=== PATIENT | female | born 1980 ===

== ENCOUNTER 2018-05-18 19:19 | Emergency (ER) | payer BC, SELFPAY ==
--- NOTE | 2018-05-18 19:22 | W.ED.GENAD ---
Discharge Plan Disposition Patient Disposition: HOME Condition: Stable Discharge Details Chief Complaint: Abd Prob Clinical Impression: Abdominal pain, Flank pain Primary Care Provider: None,None ED Provider: Feliciano Young Home Meds and New Rx's Prescriptions: No Action No Known Home Meds RF: 0 Discharge Instructions Instructions: Abdominal Pain (ED) Additional Instructions: Your cat scan did not show any acute findings to explain your symptoms You have gallstones that are unlikely causing your symptoms. If you develop pain after eating this could signal the stones are causing your pain and you should follow up with your primary care or return to the emergency department if the pain is severe Your cat scan also showed a possible uterine leiomyoma. When you follow up with your primary care provider in 1-2 weeks discuss having an ultrasound done to further evaluate this If you have significant worsening of pain, persistent vomit or high fevers return to the emergency department for reevaluation Medical Decision Making 38 yo female who denies chronic medical problems comes in with left sided abdominal/flank pain since this morning. Denies fevers or vomit. She localizes it to the left oblique and lower abdomen and has mild llq pain on exam. Will obtain CT to eval for possible diverticulitis vs kidney stone. Has no chest pain or sob and pain is in lower abdomen so dobut entities such as pe/acs and no ruq pain to suggest cholecystitis. pt's labs show no significant abnormaltiies, still declining pain meds as pain is mild, awaiting imaging results CT shows findings as described under imaging results. Only has mild pain on palpation without guarding. CT shows gallstones but has absolutely no ruq pain so do not feel this is the cause of her symptoms. I advised she f/u with her pcp for further w/u of the uterine leiomyoma and gallstones if needed and return precautions given. She has no rlq pain or tenderness so doubt appendicitis. I did advise she appears constipated on the CT and she states she has had bowel movements but hasn't eaten her normal diet due to travelling (is from [place]), advised if she notes decreased bm's to start stool softener. Differential Diagnosis diverticulitis, kidney stone Imaging Data Radiologic Study: Attestation: I personally reviewed and interpreted this imaging study as follows: Imaging: CT Scan Radiologist's impression: Cholelithiasis as above. Small appendicolith within the appendix as described above. Left nephrolithiasis without evidence of obstruction. Suspect uterine leiomyoma. This can be reevaluated with pelvic ultrasound if clinically warranted. Pessary in place. Osseous findings as above. Suspect some degree of constipation. Clinical correlation is recommended. Lab Data Lab results reviewed: Yes I reviewed the patient's lab results. HPI General Mode of arrival: ambulatory. Date/Time Provider Initiated Documentation: 05/18/18 19:21. Limitations to Documentation: no limitations. Information obtained by: patient. History of Present Illness 38 year old F presents to the emergency department with the chief complaint of abdominal pain, described as moderate, with intensity rated at 4. Quality is described as aching, and is localized to the abdomen. Patient reports no radiation. Patient started experiencing this hour(s) (10) and it has been intermittent. No relieving factors improve symptom(s), No exacerbating factors reported . Patient did receive the following treatments prior to arrival, none Related Data Home Medications Medication Instructions Recorded Confirmed Unknown [No Known Home Meds] 05/18/18 05/18/18 Allergies Allergy/AdvReac Type Severity Reaction Status Date / Time No Known Allergies Allergy Unverified 05/18/18 19:36 Review of Systems Review of Systems All systems reviewed & are unremarkable except as noted in HPI and below Constitutional Denies chills, Denies fever(s) and Denies weakness Eyes Denies loss of vision ENT Denies change in voice Cardiovascular Denies chest pain and Denies dyspnea Respiratory Denies dyspnea Gastrointestinal Denies nausea and Denies vomiting Genitourinary Denies dysuria Musculoskeletal Denies joint swelling Integumentary/Breasts Denies rash Neurologic Denies loss of vision and Denies weakness Psychiatric Denies depression Endocrine Denies cold intolerance and Denies heat intolerance Allergic/Immunologic Denies urticaria [facility] Social History Smoking/Tobacco Use Status: Never Exam Const General: no acute distress Orientation: alert HENMT Head: normal to inspection Ears: external ears normal General nose exam: external nose normal Mouth: moist mucous membranes Eyes General: appearance normal, both eyes and all related structures Neck Neck: normal visual inspection Resp Effort & Inspection: normal respiratory effort and able to speak in complete sentences Cardio Rate: regular rate GI Inspection: normal to inspection Palpation: soft Skin General skin exam: no rashes or lesions noted Neuro General: alert and oriented x3 Extrem General: normal to inspection Psych Mental Status: mental status grossly normal
[2018-05-18 19:28] VITALS: BP 134/91; PULSE 84; RESP 16; TEMP 36.6; O2SAT 97
--- NOTE | 2018-05-18 19:40 | DI.CT_ITS ---
SYMPTOMS/DIAGNOSIS: LT SIDED ABD PAIN CT OF THE ABDOMEN AND PELVIS: Images were performed from the lower chest through the ischial tuberosities after IV and without oral contrast. The lung bases are clear. The visualized portions of the heart are unremarkable. Large calcified stones are noted in the gallbladder. There is abnormal gallbladder wall thickening or distention. No biliary dilatation is seen. There is mild fatty infiltration of the liver. The spleen, pancreas and adrenals are unremarkable. There is a tiny nonobstructing stone at the lower pole of the left kidney. The bladder is unremarkable. A cervical diaphragm is noted. The uterus is enlarged and shows a few fibroids. The ovaries are unremarkable. The appendix is not enlarged. No bowel dilatation or inflammatory changes are seen. There is a normal quantity of stool. Degenerative changes are seen at L 4 - 5. IMPRESSION: Cholelithiasis. No evidence of acute cholecystitis or other acute abnormality.
--- NOTE | 2018-05-18 19:43 | ED.GENADUL_ITS ---
Discharge Plan Disposition Patient Disposition: HOME Condition: Stable Discharge Details Chief Complaint: Abd Prob Clinical Impression: Abdominal pain, Flank pain Primary Care Provider: None,None ED Provider: Feliciano Young Home Meds and New Rx's Prescriptions: No Action No Known Home Meds RF: 0 Discharge Instructions Instructions: Abdominal Pain (ED) Additional Instructions: Your cat scan did not show any acute findings to explain your symptoms You have gallstones that are unlikely causing your symptoms. If you develop pain after eating this could signal the stones are causing your pain and you should follow up with your primary care or return to the emergency department if the pain is severe Your cat scan also showed a possible uterine leiomyoma. When you follow up with your primary care provider in 1-2 weeks discuss having an ultrasound done to further evaluate this If you have significant worsening of pain, persistent vomit or high fevers return to the emergency department for reevaluation Medical Decision Making 38 yo female who denies chronic medical problems comes in with left sided abdominal/flank pain since this morning. Denies fevers or vomit. She localizes it to the left oblique and lower abdomen and has mild llq pain on exam. Will obtain CT to eval for possible diverticulitis vs kidney stone. Has no chest pain or sob and pain is in lower abdomen so dobut entities such as pe/acs and no ruq pain to suggest cholecystitis. pt's labs show no significant abnormaltiies, still declining pain meds as pain is mild, awaiting imaging results CT shows findings as described under imaging results. Only has mild pain on palpation without guarding. CT shows gallstones but has absolutely no ruq pain so do not feel this is the cause of her symptoms. I advised she f/u with her pcp for further w/u of the uterine leiomyoma and gallstones if needed and return precautions given. She has no rlq pain or tenderness so doubt appendicitis. I did advise she appears constipated on the CT and she states she has had bowel movements but hasn't eaten her normal diet due to travelling (is from [place]), advised if she notes decreased bm's to start stool softener. Differential Diagnosis diverticulitis, kidney stone Imaging Data Radiologic Study: Attestation: I personally reviewed and interpreted this imaging study as follows: Imaging: CT Scan Radiologist's impression: Cholelithiasis as above. Small appendicolith within the appendix as described above. Left nephrolithiasis without evidence of obstruction. Suspect uterine leiomyoma. This can be reevaluated with pelvic ultrasound if clinically warranted. Pessary in place. Osseous findings as above. Suspect some degree of constipation. Clinical correlation is recommended. Lab Data Lab results reviewed: Yes I reviewed the patient's lab results. HPI General Mode of arrival: ambulatory . Date/Time Provider Initiated Documentation: 05/18/18 19:21 . Limitations to Documentation: no limitations . Information obtained by: patient . History of Present Illness 38 year old F presents to the emergency department with the chief complaint of abdominal pain, described as moderate, with intensity rated at 4. Quality is described as aching, and is localized to the abdomen. Patient reports no radiation. Patient started experiencing this hour(s) (10) and it has been intermittent. No relieving factors improve symptom(s), No exacerbating factors reported . Patient did receive the following treatments prior to arrival, none Related Data Home Medications Medication Instructions Recorded Confirmed Unknown [No Known Home Meds] 05/18/18 05/18/18 Allergies Allergy/AdvReac Type Severity Reaction Status Date / Time No Known Allergies Allergy Unverified 05/18/18 19:36 Review of Systems Review of Systems All systems reviewed & are unremarkable except as noted in HPI and below Constitutional Denies chills, Denies fever(s) and Denies weakness Eyes Denies loss of vision ENT Denies change in voice Cardiovascular Denies chest pain and Denies dyspnea Respiratory Denies dyspnea Gastrointestinal Denies nausea and Denies vomiting Genitourinary Denies dysuria Musculoskeletal Denies joint swelling Integumentary/Breasts Denies rash Neurologic Denies loss of vision and Denies weakness Psychiatric Denies depression Endocrine Denies cold intolerance and Denies heat intolerance Allergic/Immunologic Denies urticaria [facility] Social History Smoking/Tobacco Use Status: Never Exam Const General: no acute distress Orientation: alert HENMT Head: normal to inspection Ears: external ears normal General nose exam: external nose normal Mouth: moist mucous membranes Eyes General: appearance normal, both eyes and all related structures Neck Neck: normal visual inspection Resp Effort & Inspection: normal respiratory effort and able to speak in complete sentences Cardio Rate: regular rate GI Inspection: normal to inspection Palpation: soft Skin General skin exam: no rashes or lesions noted Neuro General: alert and oriented x3 Extrem General: normal to inspection Psych Mental Status: mental status grossly normal
[2018-05-18 20:19] LABS: Abs Immature Grans 0.05 k/cumm (0.0-0.09); Absolute Basophil Count 0.03 k/cumm (0.0-0.2); Absolute Eosinophil Count 0.08 k/cumm (0.0-0.7); Absolute Lymphocyte Count 2.55 k/cumm (1.2-3.4); Absolute Neutrophil Count 10.06 k/cumm (1.2-6.7); Basophils % 0.2; Eosinophils % 0.6; HCT 40.1 % (36.0-46.0); HGB 13.7 g/dL (12.0-15.5); Immature Grans % 0.4; Lymphocytes % 18.9; Mean Corp. HGB Concentration 34.2 g/dL (32.0-36.0); Mean Corpuscular Hemoglobin 30.6 pg (27.0-33.0); Mean Corpuscular Volume 89.5 fL (80-95); Mean Platelet Volume 11.2 fL (8.0-11.0); Monocytes % 5.3; Neutrophils % 74.6; Platelet Count 342 x1000/uL (130-400); RBC 4.48 m/cumm (4.00-5.20); RBC Distribution Width 13.7 % (11.7-14.6); White Blood Cell Count 13.49 k/cumm (4.4-10.8)
[2018-05-18] MEDS: Omnipaque 350 MG/ML 100 ML BTL IJ (20:24)
[2018-05-18 20:33] LABS: Absolute Monocyte Count 0.71 k/cumm (0.11-0.7)
[2018-05-18 20:40] LABS: ALT 26 U/L (12-78); AST 15 U/L (15-37); Albumin 3.9 g/dL (3.4-5.0); Alkaline Phosphatase 101 U/L (46-116); Bilirubin, Direct 0.06 mg/dL (0.00-0.20); Bilirubin, Total 0.2 mg/dL (0.2-1.0); Total Protein 8.4 g/dL (6.4-8.2)
[2018-05-18 20:41] LABS: ALT 25 U/L (12-78); AST 16 U/L (15-37); Albumin 3.9 g/dL (3.4-5.0); Alkaline Phosphatase 102 U/L (46-116); Anion Gap 13.8 mmol/L (3-11); BUN 11 mg/dL (7-18); Bilirubin, Total 0.2 mg/dL (0.2-1.0); CO2 23.2 mmol/L (21.0-32.0); CREATININE 1.22 mg/dL (0.55-1.02); Calcium 9.5 mg/dL (8.5-10.1); Chloride 101 mmol/L (98-107); Estimated GFR 49.07 (mL/min/1.73m2); Glucose 106 mg/dL (70-100); Lipase 164 U/L (73-393); Potassium 4.1 mmol/L (3.5-5.1); Sodium 138 mmol/L (136-145); Total Protein 8.4 g/dL (6.4-8.2)
--- NOTE | 2018-05-18 21:03 | DI.VRAD_ITS ---
EXAM: CT Abdomen and Pelvis With Contrast EXAM DATE/TIME: 05/18/2018 7:41 PM CLINICAL HISTORY: 38 years old, female; Pain; Abdominal pain; Generalized TECHNIQUE: Axial computed tomography images of the abdomen and pelvis with intravenous contrast. All CT scans at this facility use at least one of these dose optimization techniques: automated exposure control; mA and/or kV adjustment per patient size (includes targeted exams where dose is matched to clinical indication); or iterative reconstruction. Coronal and sagittal reformatted images were created and reviewed. CONTRAST: 100 ml of [id number] administered intravenously. COMPARISON: No relevant prior studies available. FINDINGS: Lower thorax: The visualized portions of the heart and pericardium are within normal limits. The visualized lung bases are within normal limits. ABDOMEN: Liver: The liver is within normal limits. Gallbladder and bile ducts: There are large calcified gallstones within the gallbladder. Pancreas: The pancreas is within normal limits. Spleen: The spleen is unremarkable. Adrenals: The adrenal glands are unremarkable. Kidneys and ureters: The right kidney is within normal limits. There is a tiny calculus in the lower pole of the left kidney measuring 3 mm. This is nonobstructing. Stomach and bowel: There is no evidence of bowel obstruction. There are feces within the colon which could represent some degree of constipation. Appendix: The appendix is visualized. There is a tiny appendicolith within the appendix measuring 3 mm. Otherwise the appendix appears within normal limits. PELVIS: Bladder: The urinary bladder is unremarkable. Reproductive: The uterus is slightly nodular. Small uterine leiomyoma are not excluded. The ovaries are unremarkable. There is a pessary in place. ABDOMEN and PELVIS: Intraperitoneal space: Normal. No free air. No significant fluid collection. Bones/joints: There are degenerative changes of the thoracic and lumbar spines. There is degenerative disc disease at L4-L5. Soft tissues: Unremarkable. Vasculature: Normal. No abdominal aortic aneurysm. Lymph nodes: No enlarged lymph nodes. IMPRESSION: Cholelithiasis as above. Small appendicolith within the appendix as described above. Left nephrolithiasis without evidence of obstruction. Suspect uterine leiomyoma. This can be reevaluated with pelvic ultrasound if clinically warranted. Pessary in place. Osseous findings as above. Suspect some degree of constipation. Clinical correlation is recommended. Dictated and Authenticated by: Pritesh Vail MD. Ordering:TRACY Wiggins MD
[2018-05-18 21:23] VITALS: BP 132/90; PULSE 80; RESP 15; TEMP 36.6; O2SAT 97
== END 2018-05-18 21:32 | disposition home or self-care (01) ==
LOC: ER 21:47
PROVIDERS: Emergency Provider Emergency Medicine
DX: R10.12 Left upper quadrant pain (principal); R10.32 Left lower quadrant pain; R93.2 Abnormal findings on diagnostic imaging of liver and biliary tract; R93.5 Abnormal findings on diagnostic imaging of other abdominal regions, including retroperitoneum
CPT/HCPCS: 36415; 80053; 80076; 83690; 99285; 74177; 85025; 99284; J3490